=== PATIENT | male | born 1990 | race African-American/Black ===

== ENCOUNTER 2021-07-25 08:15 | Outpatient (CLI) | payer OTHER, SELFPAY ==
--- NOTE | ~2021-07-25 | US_ITS ---
EXAMINATION: US retroperitoneal duplex ltd EXAM DATE: 07/25/2021 08:49 INDICATION: Hypertension, renal artery stenosis. TECHNIQUE: Multiple grayscale and Doppler images of the kidneys and renal arteries were obtained. T here is no prior study for comparison. FINDINGS: Several images the bladder demonstrate no focal abnormality. No hydronephrosis. The aorta peak systolic velocity is 143 cm/s. Renal arteries interrogated in several segments from origin to hilum. RIGHT RENAL ARTERY Proximal segment (origin): 119 cm/s. Middle segment: 97 cm/s. Distal segment (hilum): 97 cm/s. LEFT RENAL ARTERY Proximal segment (origin): 112 cm/s. Middle segment: 101 cm/s. Distal segment (hilum): 80 cm/s. IMPRESSION: 1. Renal artery Doppler velocities within normal limits. Reviewed, dictated and finalized at location B. UTER SCIENCES PROFESSOR
--- NOTE | ~2021-07-25 | US_ITS ---
EXAMINATION: US renal BI EXAM DATE: 07/25/2021 08:50 INDICATION: Hypertension. TECHNIQUE: Multiple grayscale and Doppler images of the kidneys were obtained (by a technologist who performed the scan) and subsequently reviewed. There is no prior study for comparison. FINDINGS: Right kidney: There is normal contour and echogenicity. It measures 10.5 x 5.6 x 4.6 centimeters. T here are no focal renal lesions identified. There is no hydronephrosis. Left kidney: There is normal contour and echogenicity. It measures 10.8 x 5.8 x 5.1 centimeters. Th ere are no focal renal lesions identified. There is no hydronephrosis. Bladder unremarkable. IMPRESSION: 1. Sonographically unremarkable kidneys. Reviewed, dictated and finalized at location B. LUTION ANALYST
== END 2021-07-25 08:59 | disposition home or self-care (01) ==
LOC: ANHIMG 08:19
PROVIDERS: Visit Provider Emergency Medicine
DX: I10 Essential (primary) hypertension (principal)
CPT/HCPCS: 76775; 93976